=== PATIENT | male | born 2005 | race Caucasian/White ===

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

== ENCOUNTER 2024-02-12 01:26 | Emergency (ER) | payer MEDICAID, OTHER ==
[~2024-02-12] VITALS: Ht 172.7 cm; Wt 87.0 kg
[2024-02-12 01:36] VITALS: O2SAT 98
[2024-02-12 03:20] VITALS: TEMP 37.66968; O2SAT 98
[2024-02-12 03:23] VITALS: BP 124/68; PULSE 122; RESP 22
[2024-02-12] MEDS: IBUPROFEN 600MG TABLET PO ONE (03:23)
== END 2024-02-12 03:31 | disposition home or self-care (01) ==
LOC: ER 01:26
DX: J02.9 Acute pharyngitis, unspecified (principal)
CPT/HCPCS: 87070; 87430; 99283